=== PATIENT | female | born 1985 | race Caucasian/White ===

== ENCOUNTER 2018-09-21 13:42 | Day surgery (SDC) | payer OTHER ==
[~2018-09-21] VITALS: Ht 172.7 cm; Wt 67.6 kg
[~2018-09-21 13:42] MED LIST: ACET325C PO; KEFL500C17 PO; LR 1,000 ML IV ONE; PERC5TAB12 PO
[2018-09-21] MEDS ORDERED: ROPIvacaine 0.5% 30 ML INJECTION (J2795 PER 1MG) ONE (13:43)
[2018-09-21] MEDS ORDERED: dexameTHASONE 10 MG/1 ML VIAL PRES.FREE (J1100) ONE (13:43)
[2018-09-21] MEDS ORDERED: fentaNYL 100 MCG/2 ML INJECTION (J3010) As Ordered ONE ×2 (14:05→14:33)
[2018-09-21] MEDS ORDERED: MIDAZOLAM INJ 2 MG/2 ML VIAL (J2250) As Ordered ONE ×2 (14:05→14:34)
[2018-09-21 14:08] LABS: URINE PREG TEST NEGATIVE (NEGATIVE)
[2018-09-21] MEDS ORDERED: PROPOFOL 200 MG/20 ML VIAL As Ordered ONE ×2 (14:34→18:10)
[2018-09-21] MEDS ORDERED: LIDOCAINE 2% INJ 100 MG/5 ML SDV (FOR ANES.) As Ordered ONE (14:35)
[2018-09-21] MEDS ORDERED: METOCLOPRAMIDE INJ 10MG/2ML VIAL (J2765) As Ordered ONE ×2 (14:35→19:54)
[2018-09-21] MEDS ORDERED: dexameTHASONE 4 MG/ML 1ML VIAL (J1100) As Ordered ONE (14:36)
[2018-09-21] MEDS ORDERED: ROCURONIUM BROMIDE 50 MG/5 ML VIAL As Ordered ONE (14:36)
[2018-09-21] MEDS ORDERED: ONDANSETRON 4MG/2ML VIAL (J2405) As Ordered ONE ×2 (14:36→19:41)
[2018-09-21] MEDS ORDERED: MIDAZOLAM INJ 2 MG/2 ML VIAL (J2250) IV ONE (15:15)
[2018-09-21] MEDS ORDERED: fentaNYL 100 MCG/2 ML INJECTION (J3010) IV ONE (15:15)
[2018-09-21] MEDS ORDERED: HYDROmorphone HCL 2 MG/ML 1ML VIAL (J1170) As Ordered ONE (18:03)
[2018-09-21] MEDS ORDERED: GLYCOPYRROLATE INJ 0.2 MG/ML 2 ML VIAL As Ordered ONE (19:17)
[2018-09-21] MEDS ORDERED: NEOSTIGMINE 10 MG/10 ML VIAL (J2710) As Ordered ONE (19:17)
[2018-09-21] MEDS ORDERED: LR 1,000 ML IV SCH ×2 (20:00→20:30)
[2018-09-21] MEDS ORDERED: ONDANSETRON 4MG/2ML VIAL (J2405) IV PRN (20:00)
[2018-09-21] MEDS ORDERED: fentaNYL 100 MCG/2 ML INJECTION (J3010) IV PRN (20:00)
[2018-09-21] MEDS ORDERED: PERCOCET 5MG/325MG TAB PO PRN ×2 (20:30)
[2018-09-21] MEDS ORDERED: METOCLOPRAMIDE INJ 10MG/2ML VIAL (J2765) IV ONE (20:30)
[2018-09-21 21:32] VITALS: BP 116/70
--- NOTE | 2018-09-22 01:06 | REP ---
Status post fixation for baseline. Technique: Portable AP, lateral, oblique views of the right foot. Findings: Open reduction and fixation with orthopedic hardware noted along the lateral aspect of the hind/midfoot. Impression: Status post open reduction and fixation. Electronically Signed by Phillip Dong MD 09/22/2018 12:57 A
--- NOTE | 2018-09-22 10:13 | REP ---
Partial right foot series: 27 views intraprocedural. History: Displaced fracture of the lateral cuneiform of the right foot. No comparison imaging. 70 seconds of fluoroscopy time is reported. Findings: A sequence of 27 last image hold fluoroscopically obtained spot radiographs of the foot document operative reduction and internal fixation. Electronically Signed by Octaviano Brody MD 09/22/2018 02:45 P
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
== END 2018-09-21 21:42 | disposition home or self-care (01) ==
LOC: M SDC 13:42 → UNMERGE 16:15 → MERGE 16:15 → M SDC 21:42
PROVIDERS: ATTEND Orthopaedic Surgery
DX: S92.221A Displaced fracture of lateral cuneiform of right foot, initial encounter for closed fracture (principal); S92.212A Displaced fracture of cuboid bone of left foot, initial encounter for closed fracture; Z79.899 Other long term (current) drug therapy; Z87.891 Personal history of nicotine dependence; Y92.9 Unspecified place or not applicable; Y93.9 Activity, unspecified
CPT/HCPCS: 28456; 28485; 64445; 73630; 76000; 84703; C1713; J0690; J1100; J1170; J2250; J2405; J2710; J2765; J2795; J3010

== ENCOUNTER → 2021-03-18 | Outpatient (REF) | payer OTHER ==
[~2021-03-18] MED LIST changes: -ACET325C PO; +ACET325C5 PO; -LR 1,000 ML IV ONE
== END ==
LOC: M LAB REF 17:04
PROVIDERS: ATTEND Physician Assistant
DX: J02.9 Acute pharyngitis, unspecified (principal)

== ENCOUNTER → 2021-09-02 | Outpatient (REF) | payer OTHER | LOC: M LAB REF 16:13 | PROVIDERS: ATTEND Physician Assistant Medical | DX: J02.9 Acute pharyngitis, unspecified (principal); R05.9 Cough, unspecified; R53.83 Other fatigue ==